=== PATIENT | female | born 1955 ===

== ENCOUNTER 2017-05-15 09:25 | Emergency (ER) | payer OTHER ==
[2017-05-15 09:41] VITALS: BP 118/77; O2SAT 100
--- NOTE | 2017-05-15 10:02 | C.PDOC ---
Time Seen by Provider: 05/15/17 09:57 Chief Complaint (Nursing): Lower Extremity Problem/Injury Past Medical History Reviewed: Historical Data, Nursing Documentation, Vital Signs Vital Signs: Last Vital Signs Temp 98.1 F 05/15/17 12:33 Pulse 78 05/15/17 12:33 Resp 18 05/15/17 12:33 BP 118/77 05/15/17 12:33 Pulse Ox 100 05/15/17 18:52 - Medical History PMH: No Chronic Diseases Surgical History: No Surg Hx Family History: States: No Known Family Hx - Social History Hx Alcohol Use: No Hx Substance Use: No - Immunization History Hx Tetanus Toxoid Vaccination: No Hx Influenza Vaccination: Yes Hx Pneumococcal Vaccination: No ED Course And Treatment O2 Sat by Pulse Oximetry: 100 Medical Decision Making Medical Decision Making: Patient feeling better, also c/o rash , intermittent. Disposition Counseled Patient/Family Regarding: Studies Performed, Diagnosis, Need For Followup, Rx Given - Disposition Referrals: [facility] [Outside] Ella Montiel MD [Staff Provider] - Jorge Luis Morton MD [Non-Staff] - Disposition: HOME/ ROUTINE Disposition Time: 12:30 Condition: STABLE Prescriptions: Ibuprofen [Motrin] 600 mg PO TID #15 tab Methylprednisolone [Medrol Dose Pack (21 tabs)] 4 mg PO DAILY #21 mg traMADol/Acetaminophen [Ultracet 37.5/325 mg] 1 tab PO TID PRN #20 tab PRN Reason: pain Instructions: How to Make a Hot/Cold Rice Pack Forms: Gen Discharge Inst Italian, [employer] (Italian), Work Excuse - POA Present On Arrival: None - Clinical Impression Clinical Impression: Joint pain, Joint swelling, Rash in adult - Scribe Statement The provider has reviewed the documentation as recorded by the Jairo Mo Provider Attestation: All medical record entries made by the Darioibkai were at my direction and personally dictated by me. I have reviewed the chart and agree that the record accurately reflects my personal performance of the history, physical exam, medical decision making, and the department course for this patient. I have also personally directed, reviewed, and agree with the discharge instructions and disposition.
--- NOTE | 2017-05-15 11:29 | RAD ---
PROCEDURE: Bilateral Knee Radiographs. HISTORY: pain, right more than left COMPARISON: None available. FINDINGS: BONES: Right Knee: No acute displaced fracture identified. Left Knee: No acute displaced fracture identified. JOINTS: Right Knee: No dislocation. Left knee: No dislocation. SOFT TISSUES: Right Knee: Unremarkable. No evidence of radiopaque foreign body Left Knee: Unremarkable. No evidence of radiopaque foreign body. JOINT EFFUSION: Right Knee: Moderate sized suprapatellar joint effusion. Left Knee: No significant joint effusion. OTHER FINDINGS: None. IMPRESSION: Moderate-sized right suprapatellar joint effusion. No acute displaced fracture identified.
[2017-05-15 12:36] VITALS: PULSE 78; RESP 18; TEMP 98.1
== END 2017-05-15 12:41 | disposition home or self-care (01) ==
LOC: C.ER 09:25
DX: R21 Rash and other nonspecific skin eruption (principal); M25.50 Pain in unspecified joint; M25.40 Effusion, unspecified joint